=== PATIENT | female | born 1965 | race Caucasian/White ===

== ENCOUNTER 2016-10-27 14:41 | Emergency (ER) ==
[2016-10-27] MEDS ORDERED: TYLENOL PO ONE (15:26)
--- NOTE | 2016-10-27 15:31 | PROVIDER DOCUMENTATION ---
HPI-Musculoskeletal Pain/Inj - GENERAL Chief Complaint: Extremity Injury Stated Complaint: FALL/RT WRIST,HAND INJURY Time Seen by Provider: 10/27/16 15:18 Source: patient - HX OF PRESENT ILLNESS-MUSKULOSKELTAL Nature of Presenting Problem: 51 year old WF presents with c/o right wrist pain, right hand pain, onset this morning when she lost her footing and fell off the porch, striking her right hand onto concrete while extended outward. denies any other injury with fall. Quality of Pain: reports: sharp, stabbing Severity in ED: mild Onset/Duration: this morning Timing: still present, constant, getting worse Modifying Factors: improves with: nothing Any recent injury?: Yes Locality of Occurance: Home Similar Symptoms Previously?: No Recently seen or treated by another doctor?: No - FALL INJURY Location of Pain/Injury: reports: upper extremity, hand(s) Pain Radiation: reports: arm(s) (pain radiates from right wrist up arm.) Reason for Fall: reports: lost balance, slipped, tripped. denies: fainted, lightheaded Symptoms prior to fall:: reports: none. denies: headache, seizure, other, fever /chills/sweaty, chest pain, rapid heart rate, cough, diarrhea, vomiting, GI bleed, dizzy/lightheaded Loss of Consciousness: no loss of consciousness (pt has full recollection of event) Injury Associated Symptoms: reports: arm pain - BACK & NECK PAIN/INJURY Back/Neck Pain Location: denies: C-spine, T-spine, lumbar spine, sacrum, coccyx , paraspinous muscles Review of Systems - Adult - REVIEW OF SYSTEMS - ADULT Constitutional: reports: no symptoms reported. denies: chills, fever, fatique Eyes: reports: no symptoms reported. denies: discharge, blurred vision, double vision Ears, Nose, Mouth & Throat: reports: no symptoms reported. denies: ear discharge, ear pain, nose pain, loose teeth, throat pain, throat swelling Cardiovascular: reports: no symptoms reported. denies: chest pain, palpitations , syncope Respiratory: reports: no symptoms reported. denies: chronic cough, cough, shortness of breath, wheezing Gastrointestinal: reports: no symptoms reported. denies: abdominal pain, diarrhea, nausea, vomiting Genitourinary: reports: no symptoms reported. denies: dysuria, hematuria, urgency Musculoskeletal: reports: see HPI, joint pain, joint swelling. denies: bone pain, back pain, frequent leg cramps, muscle aches, muscle weakness, neck pain Integumentary: reports: no symptoms reported. denies: hives, itching, rash, skin sores/ulcer Neurological: reports: no symptoms reported. denies: ataxia, dizziness/vertigo , headache/migraines, loss of balance, numbness, paresthesia, seizure, slurred speech, syncope, tremors Psychiatric: reports: no symptoms reported, emotional problems Endocrine: reports: no symptoms reported Hematologic/Lymphatic: reports: no symptoms reported Allergic/Immunologic: reports: no symptoms reported All Other Systems: Reviewed and Negative Past History - Adult - PAST MEDICAL HISTORY-ADULT Review of Records: reports: Old Records Reviewed, Nursing Assessment Review, Medications Reviewed, Social history reviewed & non-contributory. Major Childhood Illnesses: reports: denies history Cardiovascular: reports: denies history Respiratory: reports: asthma Gastrointestinal: reports: denies history Obstetrical/Gynecological: reports: denies history Genitourinary: reports: denies history Musculoskeletal: reports: denies history Neurological: reports: denies history Psychiatric: reports: bipolar Endocrine/Immune: reports: Diabetes Diabetes Type: Type 2 Diabetes controlled by:: Diet Other Conditions: reports: denies history - PRIOR SURGERIES/PROCEDURES Surgical/Procedure History: reports: gastric bypass - PRIOR HOSPITALIZATIONS Prior Hospitalizations: reports: for other non-related - IMMUNIZATION STATUS Childhood Immunizations: See Nurse Assessment Flu Vaccine: See Nurse Assessment - FAMILY HISTORY Family History: reviewed, not pertinent - SOCIAL HISTORY Smoking: cigarettes Provider spent 3-5 mins advising pt. on dangers of tobacco.: Discussed manners to quit use, and f/u contacts for add'l counseling. Substance Use: none/never Alcohol Use Frequency: never Physical Exam-Injury Related - Physical Exam-Injury Related Initial Vital Signs Reviewed: Yes General Appearance: appears well, alert, no apparent distress. negative: mild distress, moderate distress, severe distress, lethargic, slow to respond, obtunded, combative Eyes: pink conjunctivae. negative: conjuctival exudate, pale conjunctivae, sclera injected, scleral icterus, subconjunctival hemorrhage Head, Ears, Nose, Mouth & Throat: normocephalic/atraumatic, moist mucous membranes, normal ENT inspection Neck: non-tender, full range of motion, supple, normal inspection. negative: C- spine tenderness, decresed ROM, ecchymosis, limited range of motion, pain on movement, tender lateral, tender midline, vertebral point tenderness Respiratory: chest non-tender, lungs clear, normal breath sounds, no pleuratic chest pain, no respiratory distress, no accessory muscle use. negative: respiratory distress, decreased breath sounds, accessory muscle use, crackles, rales, rhonchi, stridor, wheezing Cardiovascular: normal peripheral pulses, regular rate, rhythm Chest/Breast: tenderness (right lateral rib tenderness with deep palpatation, no crepitus, SQ air, ecchymosis) Peripheral Pulses: radial (R): 3+, radial (L): 3+, dorsalis-pedis (R): 3+, dorsalis-pedis (L): 3+ Abdominal Exam: normal bowel sounds, non tender, soft, no organomegaly, no pulsatile mass Female Genitalia/Pelvic Exam: deferred Rectal Exam: deferred Hemoccult Exam: deferred Lymphatic: no adenopathy Back Exam: normal inspection, no CVA tenderness, no vertebral tenderness. negative: CVA tenderness, decreased range of motion, swelling, vertebral tenderness Extremity: normal gait, normal inspection, no pedal edema, no calf tenderness, normal capillary refill, pelvis stable. negative: normal range of motion ( decreased flexion/extention of right wrist; mild swelling medially/laterally to right wrist, full sensation, ciructaion intact.), non-tender, abnormal NV exam, deformity, erythema, inflammation, joint effusion, pulse deficit, slow capillary refill, swelling, tenderness Integumentary: normal color, warm/dry. negative: abrasion, ashen Neurologic: grossly normal, no motor/sensory deficits Psych/Mental Status: normal mood/affect, normal thought content, normal thought process, oriented x 3 - Glascow Coma Score Best Eye Response ([place]): (4) open spontaneously Best Verbal Response ([place]): (5) oriented Best Motor Response ([place]): (6) obeys commands [place] Total: 15 Progress - PLAN OF CARE/RESULTS Progress/Plan/Lab Results: Orders Category Date Time Status Wrist Splint DIRECTED Care 10/27/16 17:26 Active HAND COMPLETE RIGHT [RAD] Stat Exams 10/27/16 15:27 Completed WRIST COMPLETE RIGHT [RAD] Stat Exams 10/27/16 15:26 Draft Acetaminophen [Tylenol] Med 10/27/16 15:26 Discontinued 1,000 mg PO NOW ONE Vital Signs - 24 hr 10/27/16 10/27/16 14:44 17:30 Temperature 98.1 F Pulse Rate 71 72 Respiratory 18 17 Rate Blood Pressure 155/71 142/66 O2 Sat by Pulse 100 100 Oximetry - XRAY 1 XRAY: Right XRAY Study: Wrist Impression: Normal (per Dr. Hewitt) 2 XRAY: Right XRAY Study: Hand Impression: Normal (per Dr. Hewitt) Departure - Departure Time of Disposition Order: 16:48 DIAGNOSIS: Fall Qualifiers: Encounter type: initial encounter Qualified Code(s): W19.XXXA - Unspecified fall, initial encounter Contusion of right hand Qualifiers: Encounter type: initial encounter Qualified Code(s): S60.221A - Contusion of right hand, initial encounter Wrist contusion Qualifiers: Encounter type: initial encounter Laterality: right Qualified Code(s): S60.211A - Contusion of right wrist, initial encounter Disposition: HOME 01 Certified Medical Emergency: Emergent Condition: Stable Additional Instructions: Follow up with Dr. Hamilton in 1 week if not improving with pain medication, ice and elevation. ED Follow Up Instructions: You have been treated by a care provider in the Emergency Department. These instructions are being provided to you so you can have an understanding of how to care for yourself upon discharge. Upon discharge from the Emergency Department, you are responsible for making arrangements for follow-up care by a physician of your choice. Take all prescribed medications as directed. Return to the Emergency Department immediately for any new or worsening symptoms. You may call the Physician Referral phone number at [phone] to obtain a list of Physicians who are taking new patients. Prescriptions: Oxycodone/APAP 5 mg/325 mg [Percocet-5] 1 each PO Q8H PRN PRN #5 tablet PRN Reason: right wrist tenderness Referrals: Antoni Alcantar MD [Primary Care Provider] - Geovanni Hamilton MD [STAFF PHYSICIAN] - Instructions: Fall Prevention and Home Safety, [id number], Contusion, Easy-to -Read Attestation - Physician/ ZOILA Attestation Patient care was provided by Advanced Practice Provider:: Yes Advanced Practice Provider:: Verónica Vazquez Advanced Practice Provider documentation review:: The Mid-level provider documentation, treatment plan and medical decision making was reviewed by the physician who agrees with all treatment and medical decision making by the MLP.
--- NOTE | 2016-10-27 16:47 | Diag Imaging Result Document ---
PROCEDURE NAME: HAND COMPLETE RIGHT - 10/27/2016 RIGHT HAND, 3 VIEWS: FINDINGS: There are minimal degenerative changes in the distal interphalangeal joints, particularly the middle finger. No evidence of acute fracture or dislocation is present. IMPRESSION: No acute bony disease.
--- NOTE | 2016-10-27 17:08 | Diag Imaging Result Document ---
PROCEDURE NAME: WRIST COMPLETE RIGHT - 10/27/2016 RIGHT WRIST, THREE VIEWS: FINDINGS: No fracture. No dislocation. IMPRESSION: No acute bony injury.
[2016-10-27 17:33] VITALS: BP 142/66
== END 2016-10-27 17:31 | disposition home or self-care (01) ==
LOC: ED 14:41
DX: S60.221A Contusion of right hand, initial encounter (principal); S60.211A Contusion of right wrist, initial encounter; M25.531 Pain in right wrist; W17.89XA Other fall from one level to another, initial encounter; E11.9 Type 2 diabetes mellitus without complications; Z98.84 Bariatric surgery status; F17.210 Nicotine dependence, cigarettes, uncomplicated; Z71.6 Tobacco abuse counseling; F31.9 Bipolar disorder, unspecified; Z79.899 Other long term (current) drug therapy